=== PATIENT | female | born 1985 | race Caucasian/White ===

== ENCOUNTER 2024-10-08 11:56 | Emergency (ER) | payer OTHER ==
[~2024-10-08] VITALS: Ht 167.6 cm; Wt 61.0 kg
[2024-10-08 11:58] VITALS: TEMP 36.7; O2SAT 97
[2024-10-08] MEDS: MECLIZINE 25MG TABLET PO ONE (12:41)
[2024-10-08 12:55] LABS: EOSINOPHILS % 0.8 % (0.0-5.0); HEMATOCRIT. 41.5 % (36.0-48.0); HEMOGLOBIN. 13.6 g/dL (12.0-16.0); LYMPHOCYTES % 36.1 % (20.0-50.0); MEAN CORPUSCULAR HEMOGLOBIN 29.1 pg (28.0-32.0); MEAN CORPUSCULAR HGB CONC 32.7 g/dL (31.0-37.0); MEAN PLATELET VOLUME 9.3 fl (7.4-10.4); MONOCYTES % 5.1 % (2.0-8.0); PLATELET 230 x1000/uL (130-400); RED BLOOD CELL COUNT 4.66 mill/uL (4.2-5.4)
[2024-10-08 13:08] LABS: CHLORIDE 103 mEq/L (98-107); POTASSIUM 3.7 mEq/L (3.5-5.1); SODIUM 141 mEq/L (136-145)
[2024-10-08 13:09] LABS: CARBON DIOXIDE 28 mEq/L (21-32)
[2024-10-08 13:10] LABS: CALCIUM 9.3 mg/dL (8.7-10.4); HCG SCREEN NEGATIVE
[2024-10-08 13:14] LABS: CREATININE 0.8 mg/dL (0.6-1.0); GLUCOSE 92 mg/dL (70-105)
[2024-10-08 13:15] LABS: BG BASE EXCESS 1.1 mmol/L (-2.0-3.0); BG CARBOXYHEMOGLOBIN 0.4 % (0.5-1.5); BG DEOXYHEMOGLOBIN 2.5 % (0.0-5.0); BG FRACTION INSPIRED OXYGEN 21; BG HCO3 ACT 25.2 mmol/L (21.0-28.0); BG METHEMOGLOBIN 0.2 % (0.5-1.5); BG OXYGEN SATURATION 97.5 % (94.0-98.0); BG OXYHEMOGLOBIN 96.9 % (94.0-98.0); BG PCO2 38.5 mmHg (32.0-45.0); BG PH 7.434 (7.350-7.450); BG PO2 100.1 mmHg (83.0-108.0); BG SAMPLE SITE RIGHT RADIAL; BG TOTAL HEMOGLOBIN 14.4 g/dL (12.0-16.0); BG VENT MODE ROOM AIR
[2024-10-08 13:15] LABS: ETHANOL BLOOD < 10 mg/dL (<10); UREA NITROGEN BLOOD 12 mg/dL (9-23)
[2024-10-08 13:16] LABS: ACETAMINOPHEN < 2 ug/mL (10-30)
[2024-10-08] MEDS ORDERED: MECL-299 MT (13:35)
[2024-10-08] MEDS ORDERED: ONDA4TAB50 MT (13:36)
[2024-10-08 14:21] VITALS: BP 125/80; PULSE 75; RESP 16; O2SAT 99
== END 2024-10-08 14:21 | disposition home or self-care (01) ==
LOC: ER 11:56
DX: T59.891A Toxic effect of other specified gases, fumes and vapors, accidental (unintentional), initial encounter (principal); Z88.8 Allergy status to other drugs, medicaments and biological substances; Y92.9 Unspecified place or not applicable
CPT/HCPCS: 80048; 80307; 80329; 80320; 84703; 85025; 36415; 71045; 82805; 82375; 99284; 36600; J8597; G0480